=== PATIENT | female | born 1995 | race Caucasian/White ===

== ENCOUNTER 2023-11-30 12:02 | Emergency (ER) | payer OTHER, SELFPAY ==
[2023-11-30 12:12] VITALS: BP 131/82
[2023-11-30 12:31] VITALS: BMI 32.0
--- NOTE | 2023-11-30 12:54 | ED.GENMED ---
History of Present Illness
General
Chief Complaint: Medication Reaction
Source: patient
Time Seen by Provider: 11/30/23 12:47
History of Present Illness
History of Present Illness:
28yoF with a history of anxiety presenting for evaluation of a medication reaction. Patient typically takes Zoloft 150mg in the morning. She slept in yesterday and forgot to take her medication in the morning. She took her dose yesterday evening
around 7-8pm. She woke up this morning and took her morning dose around 7am. About an hour later, she started to feel groggy. She reports feeling fatigued and intermittently nauseous. She called Poison Control and she was advised to come to the ED
for evaluation. Patient denies any other prescription or illicit medications. She denies chance of .
Phy Exam
General Physical Exam
General Presentation: well appearing and no apparent distress
General age: appears stated age
General Skin: warm and dry
General Habitus: normal
General Mental: alert
Cardiovascular Exam
Cardiovascular Exam: regular rate/rhythm
Pulmonary Exam
Pulmonary Exam: lungs clear, no respiratory distress, no crackles and no wheezing
Neurological Exam
Neurological Exam: alert and other (No tremor or clonus noted)
Suzy Coma Scale
Eye Opening: Spontaneous
Verbal Response: Oriented
Motor Response: Obeys Commands
GCS Total Score: 15
Skin Exam
Skin Exam: normal color and warm/dry
Psychiatric Exam
Psychiatric Exam: normal mood/affect
Course
Vital Signs
Initial and Last Documented VS:
Initial Vital Signs
Temp Pulse Resp BP Pulse Ox
99.0 F 71 18 131/82 99
11/30/23 12:12 11/30/23 12:12 11/30/23 12:12 11/30/23 12:12 11/30/23 12:12
Last Documented Vital Signs
Temp Pulse Resp BP Pulse Ox
99.0 F 71 18 131/82 99
11/30/23 12:12 11/30/23 12:12 11/30/23 12:12 11/30/23 12:12 11/30/23 12:12
MDM/Problems Addressed
Differential Diagnosis Includes:
28yoF here after taking two doses of 150mg Zoloft 12 hours apart as opposed to her prescribed 24 hours apart. C/o feeling groggy and fatigued. She is afebrile and hemodynamically stable. She is well appearing in no distress. Suspect symptoms are
side effect of the medication. No clinical evidence of serotonin syndrome. Will discuss with poison control.
*Critical Care Note
Total Time (30-74mins, 75-104mins- exclusive of procedures): Not Applicable
Update Note
Update Note:
Discussed case via phone with Dr. Bajwa, final inspector motorcyles from Poison Control. Per final inspector motorcyles, nothing further to do if patient is ambulating, eating, drinking normally and vitals are stable.
Recommendations discussed with patient and she is eager to go home. She was advised to not take Zoloft again until tomorrow. ED return precautions discussed. She was discharged in stable condition.
ED Attending Note
-
Portions of this chart may have been created with voice recognition software.� Occasional wrong word or��sound alike� substitutions may have occurred due to the inherent limitations of voice recognition software.
Discharge Plan
Departure
Patient Disposition: Home (Routine Discharge)
Date of Disposition: 11/30/23
Time of Disposition: 13:30
Patient with high blood pressure during this ER visit?: No
Discharge Problem:
Medication side effect
Instructions: Sertraline
Stand Alone Forms: Return to Work
Activity Restrictions/Additional Instructions:
Please follow-up with your family doctor. Return to the ER with any new or worsening symptoms.
Interventions
Interventions:
*Risk Screen - Suicide Last Done: 11/30/23 12:33
*General Assessment Last Done: 11/30/23 12:33
*Neglect/Abuse Screening Last Done: 11/30/23 12:33
ED- Fall Risk Assessment Last Done: 11/30/23 12:33
*ED COVID-19 Vaccine History Last Done: 11/30/23 12:33
*Nursing Disposition Last Done: 11/30/23 13:49
ED-Skin Assessment Last Done: 11/30/23 12:34
ED- Pulmonary Assessment Last Done: 11/30/23 12:34
ED-EENT Assessment Last Done: 11/30/23 12:34
Discharge Date and Time
Discharge Date/Time: 11/30/23 13:53
Print Language: MAORI
== END 2023-11-30 13:53 | disposition home or self-care (01) ==
LOC: EMR 12:02
PROVIDERS: EMERGENCY PHYSICIAN Student in an Organized Health Care Education/Training Program
DX: R11.0 Nausea (principal); R53.83 Other fatigue; T43.225A Adverse effect of selective serotonin reuptake inhibitors, initial encounter; F41.9 Anxiety disorder, unspecified; Z88.1 Allergy status to other antibiotic agents; Z88.0 Allergy status to penicillin
CPT/HCPCS: 99281